=== PATIENT | female | born 1995 | race Caucasian/White ===

== ENCOUNTER 2017-12-30 20:57 | Emergency (ER) | payer OTHER ==
[~2017-12-30] VITALS: Ht 157.5 cm; Wt 62.3 kg
[2017-12-30] MEDS ORDERED: TRI-SPRINTEC 281 TAB (21:13)
[2017-12-30 22:12] VITALS: BP 124/76; PULSE 93; TEMP 98.6
[2017-12-30 22:49] LABS: HIV 1/2 Antibodies Non-Reactive; HIV-1p24 Antigen Non-Reactive
[2017-12-31 12:38] LABS: HEPATITIS B SURFACE ANTIGEN Negative (()); HEPATITIS C VIRUS ANTIBODY Negative (())
== END 2017-12-30 22:12 | disposition home or self-care (01) ==
LOC: COL.ER 20:57
PROVIDERS: Physician Assistant
DX: S60.392A Other superficial injuries of left thumb, initial encounter (principal); W46.1XXA Contact with contaminated hypodermic needle, initial encounter; Y92.59 Other trade areas as the place of occurrence of the external cause